=== PATIENT | male | born 1955 | race Two or more races ===

== ENCOUNTER 2018-06-17 09:01 | Inpatient (IN) | payer MEDICAID, OTHER ==
[~2018-06-17] VITALS: Ht 172.7 cm; Wt 81.6 kg
[~2018-06-17 09:01] MED LIST: ALBU4TAB6 HHN; ALBUTEROL; METF-414 PO; P20 PO; P50 PO
[2018-06-17] MEDS ORDERED: MAGNESIUM/ALUMINUM HYDROXIDE/SIMETHICONE 30ML UDC PO STA (09:36)
[2018-06-17] MEDS ORDERED: SODIUM CHLORIDE 0.9% 1,000 ML IV ONE (09:36)
[2018-06-17] MEDS ORDERED: ONDANSETRON HCL 4MG/2ML INJ IV STA (09:36)
[2018-06-17] MEDS ORDERED: KETOROLAC 30MG/ML VIAL IV STA (09:36)
[2018-06-17 09:43] LABS: BASOPHILS % 1.2 % (0.0-2.0); EOSINOPHILS % 11.4 % (0.0-5.0); HEMATOCRIT. 38.8 % (42.0-52.0); HEMOGLOBIN. 12.7 g/dL (14.0-18.0); LYMPHOCYTES % 29.1 % (20.0-50.0); MEAN CORPUSCULAR VOLUME 79.3 fL (80.0-94.0); MEAN PLATELET VOLUME 7.4 fl (7.4-10.4); MONOCYTES % 5.4 % (2.0-8.0); NEUTROPHILS % 52.9 % (40.0-76.0); PLATELET 400 x1000/uL (130-400); RED BLOOD CELL COUNT 4.89 mill/uL (4.7-6.1); RED CELL DISTRIBUTION WIDTH 15.2 % (11.6-14.6)
[2018-06-17 09:50] LABS: CHLORIDE 104 mEq/L (98-107)
[2018-06-17 09:51] LABS: PROTHROMBIN TIME 10.1 sec (9.6-11.0)
[2018-06-17 11:26] LABS: CLARITY URINE CLEAR (CLEAR); COLOR URINE YELLOW (YELLOW); KETONES URINE NEGATIVE (NEGATIVE); LEUKOCYTE ESTERASE URINE NEGATIVE (NEGATIVE); NITRITE URINE NEGATIVE (NEGATIVE); OCCULT BLOOD URINE NEGATIVE (NEGATIVE); PH URINE 5.5 (4.5-8.0); PROTEIN URINE NEGATIVE (NEGATIVE); SPECIFIC GRAVITY URINE 1.015 (1.005-1.030); UROBILINOGEN URINE 0.2 E.U./dL (0.2-1.0)
[2018-06-17] MEDS ORDERED: PANTOPRAZOLE SODIUM 40 MG/VIAL IV ONE (11:30)
[2018-06-17] MEDS ORDERED: ACETAMINOPHEN 325MG TABLET PO PRN (15:30)
[2018-06-17] MEDS ORDERED: MORPHINE SULFATE 2 MG/ML CPJ (NOT FOR IM USE) IV PRN (15:30)
[2018-06-17] MEDS ORDERED: ONDANSETRON HCL 4MG/2ML INJ IV PRN (15:30)
[2018-06-17] MEDS ORDERED: CLONIDINE 0.1MG TABLET PO PRN (15:30)
[2018-06-17] MEDS ORDERED: IPRATROPIUM/ALBUTEROL 0.5-3(2.5)MG/3ML NEB HHN PRN (15:30)
[2018-06-17 16:00] VITALS: BP 166/84
[2018-06-17] MEDS ORDERED: ASA5EC MT (18:51)
[2018-06-17] MEDS ORDERED: INSLIS SUBCUT (18:52)
[2018-06-17] MEDS ORDERED: LISI2.5T47 MT (18:52)
[2018-06-17 19:13] VITALS: BP 166/84
[2018-06-17 20:00] VITALS: BP 155/69
[2018-06-17] MEDS ORDERED: PNEUMOCOCCAL 23-VAL P-SAC VAC 0.5 ML IM ONE (20:00)
[2018-06-17] MEDS: AMLODIPINE 5MG TABLET PO SCH (21:02)
[2018-06-17] MEDS ORDERED: DEXTROSE 50% WATER 50ML SYRINGE IV PRN ×2 (22:30)
[2018-06-18] VITALS (7 sets, daily range): BP systolic 109–139; BP diastolic 54–81
[2018-06-18] MEDS: OMEPRAZOLE 20MG CAPSULE EXTENDED RELEASE PO SCH (06:25)
[2018-06-18] MEDS: BLOOD SUGAR DIAGNOSTIC STRIP TEST SCH ×4 (06:25→20:30)
[2018-06-18 06:37] LABS: EOSINOPHILS % 11.5 % (0.0-5.0); HEMATOCRIT. 34.5 % (42.0-52.0); HEMOGLOBIN. 11.4 g/dL (14.0-18.0); LYMPHOCYTES % 33.8 % (20.0-50.0); MEAN CORPUSCULAR VOLUME 78.7 fL (80.0-94.0); MEAN PLATELET VOLUME 7.7 fl (7.4-10.4); MONOCYTES % 6.4 % (2.0-8.0); NEUTROPHILS % 47.3 % (40.0-76.0); PLATELET 376 x1000/uL (130-400); RED BLOOD CELL COUNT 4.38 mill/uL (4.7-6.1); RED CELL DISTRIBUTION WIDTH 15.1 % (11.6-14.6)
[2018-06-18 07:30] LABS: CHLORIDE 106 mEq/L (98-107)
[2018-06-18 07:42] LABS: TOTAL IRON BINDING CAPACITY 258 ug/dL (250-450)
[2018-06-18] MEDS: INSULIN LISPRO 100 UNITS/ML SUBCUT SCH ×4 (07:50→20:22)
[2018-06-18] MEDS: AMLODIPINE 5MG TABLET PO SCH ×2 (09:24→20:28)
[2018-06-18] MEDS ORDERED: SIMETHICONE 40 MG/0.6 ML 30ML ONE (13:12)
[2018-06-18] MEDS ORDERED: BACTERIOSTATIC SODIUM CHLORIDE 0.9% 30ML VIAL IJ ONE (13:12)
[2018-06-18] MEDS ORDERED: MIDAZOLAM HCL 5 MG/5 ML VIAL ONE (15:40)
[2018-06-18] MEDS ORDERED: MIDAZOLAM HCL 5 MG/5 ML VIAL IV PRN (15:40)
[2018-06-18] MEDS ORDERED: FENTANYL CITRATE/PF 50MCG/ML 2ML VIAL ONE (15:40)
[2018-06-18] MEDS ORDERED: FENTANYL CITRATE/PF 50MCG/ML 2ML VIAL IV PRN (15:41)
[2018-06-18] MEDS: DOCUSATE SODIUM 100MG CAPSULE PO SCH (18:19)
[2018-06-18] MEDS: FERROUS SULFATE 325MG TABLET PO SCH (18:19)
[2018-06-18] MEDS: MORPHINE SULFATE 4 MG/ML CPJ (NOT FOR IM USE) IV PRN (20:00)
[2018-06-19] VITALS: BP 127/77
[2018-06-19] MEDS: MORPHINE SULFATE 4 MG/ML CPJ (NOT FOR IM USE) IV PRN ×2 (03:01→08:24)
[2018-06-19 04:00] VITALS: BP 113/67
[2018-06-19 06:27] LABS: CHLORIDE 103 mEq/L (98-107)
[2018-06-19] MEDS: OMEPRAZOLE 20MG CAPSULE EXTENDED RELEASE PO SCH (06:28)
[2018-06-19 06:29] LABS: BASOPHILS % 0.7 % (0.0-2.0); EOSINOPHILS % 9.2 % (0.0-5.0); HEMATOCRIT. 34.4 % (42.0-52.0); HEMOGLOBIN. 11.3 g/dL (14.0-18.0); LYMPHOCYTES % 29.6 % (20.0-50.0); MEAN CORPUSCULAR HEMOGLOBIN 25.9 pg (28.0-32.0); MEAN CORPUSCULAR VOLUME 78.6 fL (80.0-94.0); MEAN PLATELET VOLUME 7.6 fl (7.4-10.4); MONOCYTES % 6.8 % (2.0-8.0); NEUTROPHILS % 53.7 % (40.0-76.0); PLATELET 370 x1000/uL (130-400); RED BLOOD CELL COUNT 4.38 mill/uL (4.7-6.1); RED CELL DISTRIBUTION WIDTH 15.1 % (11.6-14.6)
[2018-06-19] MEDS: BLOOD SUGAR DIAGNOSTIC STRIP TEST SCH ×3 (06:58→16:52)
[2018-06-19] MEDS: FERROUS SULFATE 325MG TABLET PO SCH ×3 (06:58→17:04)
[2018-06-19 08:00] VITALS: BP 115/71
[2018-06-19] MEDS: DOCUSATE SODIUM 100MG CAPSULE PO SCH ×2 (08:24→17:00)
[2018-06-19] MEDS: INSULIN LISPRO 100 UNITS/ML SUBCUT SCH ×3 (08:25→16:52)
[2018-06-19] MEDS: AMLODIPINE 5MG TABLET PO SCH (08:31)
[2018-06-19 12:00] VITALS: BP 112/65
[2018-06-19 14:49] VITALS: BP 112/65
[2018-06-19 16:00] VITALS: BP 118/76
== END 2018-06-19 17:42 | disposition home or self-care (01) | DRG 241 ==
LOC: ER 09:01 → ENRESERV 13:05 → EDBEDREQ 14:10 → 6EST 14:19 → EDBEDREQ 14:20
PROVIDERS: ADMIT Internal Medicine; ATTEND Internal Medicine
PROC: 0DB68ZX Excision of Stomach, Via Natural or Artificial Opening Endoscopic, Diagnostic (ICD-10-PCS; principal; 2018-06-18)
DX: K26.9 Duodenal ulcer, unspecified as acute or chronic, without hemorrhage or perforation (principal); K22.10 Ulcer of esophagus without bleeding; D50.9 Iron deficiency anemia, unspecified; E11.9 Type 2 diabetes mellitus without complications; I10 Essential (primary) hypertension; K29.70 Gastritis, unspecified, without bleeding; K31.9 Disease of stomach and duodenum, unspecified; J45.909 Unspecified asthma, uncomplicated; Z79.4 Long term (current) use of insulin; Z79.82 Long term (current) use of aspirin; Z79.899 Other long term (current) drug therapy
CPT/HCPCS: 36415; 74176; 80048; 82378; 82728; 82962; 83540; 83550; 88305; 88313; 90732; 93005; 93970; 96374; 96375; 99285; C9113; J1815; J1885; J2250; J2270; J2405; J3010; J3490; J7030

== ENCOUNTER 2018-07-22 19:49 | Emergency (ER) | payer MEDICAID ==
[~2018-07-22] VITALS: Ht 170.2 cm; Wt 73.0 kg
[~2018-07-22 19:49] MED LIST changes: +INSLIS SUBCUT; +LISI2.5T47 MT; -P20 PO; -P50 PO
[2018-07-22] MEDS ORDERED: SODIUM CHLORIDE 0.9% 1,000 ML IV ONE (23:00)
[2018-07-22] MEDS ORDERED: MAGNESIUM/ALUMINUM HYDROXIDE/SIMETHICONE 30ML UDC PO STA (23:00)
[2018-07-22] MEDS ORDERED: MORPHINE SULFATE 2 MG/ML CPJ (NOT FOR IM USE) IV ONE (23:15)
[2018-07-22 23:22] LABS: BASOPHILS % 0.3 % (0.0-2.0); EOSINOPHILS % 11.4 % (0.0-5.0); HEMATOCRIT. 39.4 % (42.0-52.0); HEMOGLOBIN. 13.1 g/dL (14.0-18.0); MEAN CORPUSCULAR HEMOGLOBIN 26.9 pg (28.0-32.0); MEAN CORPUSCULAR VOLUME 80.7 fL (80.0-94.0); MEAN PLATELET VOLUME 7.6 fl (7.4-10.4); MONOCYTES % 6.4 % (2.0-8.0); NEUTROPHILS % 47.9 % (40.0-76.0); PLATELET 311 x1000/uL (130-400); RED BLOOD CELL COUNT 4.88 mill/uL (4.7-6.1); RED CELL DISTRIBUTION WIDTH 16.5 % (11.6-14.6)
[2018-07-22 23:27] LABS: CHLORIDE 108 mEq/L (98-107)
[2018-07-22 23:30] LABS: PROTHROMBIN TIME 10.4 sec (9.6-11.0)
[2018-07-23 00:35] LABS: CLARITY URINE CLEAR (CLEAR); COLOR URINE YELLOW (YELLOW); KETONES URINE NEGATIVE (NEGATIVE); LEUKOCYTE ESTERASE URINE NEGATIVE (NEGATIVE); NITRITE URINE NEGATIVE (NEGATIVE); OCCULT BLOOD URINE NEGATIVE (NEGATIVE); PROTEIN URINE NEGATIVE (NEGATIVE); SPECIFIC GRAVITY URINE 1.012 (1.005-1.030); UROBILINOGEN URINE 0.2 E.U./dL (0.2-1.0)
[2018-07-23] MEDS ORDERED: FAMOTIDINE 20MG TABLET PO SCH (01:30)
[2018-07-23 05:06] VITALS: BP 132/76
== END 2018-07-23 05:09 | disposition home or self-care (01) ==
LOC: ER 19:49
DX: K29.50 Unspecified chronic gastritis without bleeding (principal); E11.9 Type 2 diabetes mellitus without complications; I10 Essential (primary) hypertension; J45.909 Unspecified asthma, uncomplicated; Z79.4 Long term (current) use of insulin
CPT/HCPCS: 36415; 74176; 80053; 81003; 83690; 85025; 85610; 93005; 96374; 99284; J2270; J7030

== ENCOUNTER 2020-10-02 07:43 | Emergency (ER) | payer MEDICAID ==
[~2020-10-02] VITALS: Ht 172.7 cm; Wt 68.0 kg
[2020-10-02 08:55] LABS: BASOPHILS % 0.8 % (0.0-2.0); CHLORIDE 108 mEq/L (98-107); EOSINOPHILS % 4.9 % (0.0-5.0); HEMATOCRIT. 28.4 % (42.0-52.0); HEMOGLOBIN. 8.8 g/dL (14.0-18.0); LYMPHOCYTES % 23.9 % (20.0-50.0); MEAN CORPUSCULAR VOLUME 67.8 fL (80.0-94.0); MEAN PLATELET VOLUME 7.2 fl (7.4-10.4); MONOCYTES % 6.1 % (2.0-8.0); NEUTROPHILS % 64.3 % (40.0-76.0); PLATELET 472 x1000/uL (130-400); RED BLOOD CELL COUNT 4.18 mill/uL (4.7-6.1); RED CELL DISTRIBUTION WIDTH 17.3 % (11.6-14.6)
[2020-10-02 09:32] LABS: CLARITY URINE CLEAR (CLEAR); COLOR URINE YELLOW (YELLOW); KETONES URINE NEGATIVE (NEGATIVE); LEUKOCYTE ESTERASE URINE NEGATIVE (NEGATIVE); NITRITE URINE NEGATIVE (NEGATIVE); OCCULT BLOOD URINE NEGATIVE (NEGATIVE); PROTEIN URINE TRACE (NEGATIVE); SPECIFIC GRAVITY URINE 1.009 (1.005-1.030); UROBILINOGEN URINE 0.2 E.U./dL (0.2-1.0)
[2020-10-02 10:04] LABS: PLATELET ESTIMATE INCREASED
[2020-10-02 10:30] VITALS: BP 176/89
== END 2020-10-02 10:30 | disposition home or self-care (01) ==
LOC: ER 07:43
DX: E10.649 Type 1 diabetes mellitus with hypoglycemia without coma (principal); R42 Dizziness and giddiness; I10 Essential (primary) hypertension; J45.909 Unspecified asthma, uncomplicated; Z79.4 Long term (current) use of insulin
CPT/HCPCS: 36415; 71045; 73030; 80053; 81003; 84484; 85025; 93005; 99285

== ENCOUNTER 2023-04-25 20:10 | Emergency (ER) | payer OTHER ==
[~2023-04-25] VITALS: Ht 175.3 cm; Wt 95.0 kg
[~2023-04-25 20:10] MED LIST changes: +ALBU18HF2 IH; -ALBUTEROL; +FLUT1DIS3 INH; -INSLIS SUBCUT; +LEVO-65 MT; +METR-167 MT; +TOPUD PO
[2023-04-25 20:36] VITALS: O2SAT 100
[2023-04-25 21:33] LABS: BASOPHILS % 0.8 % (0.0-2.0); DIFFERENTIAL COMMENT 0; EOSINOPHILS % 3.8 % (0.0-5.0); HEMATOCRIT. 36.6 % (42.0-52.0); HEMOGLOBIN. 12.1 g/dL (14.0-18.0); LYMPHOCYTES % 43.7 % (20.0-50.0); MEAN CORPUSCULAR HEMOGLOBIN 26.3 pg (28.0-32.0); MEAN CORPUSCULAR VOLUME 79.7 fL (80.0-94.0); MEAN PLATELET VOLUME 7.5 fl (7.4-10.4); MONOCYTES % 7.4 % (2.0-8.0); NEUTROPHILS % 44.3 % (40.0-76.0); PLATELET 239 x1000/uL (130-400); WHITE BLOOD COUNT 4.3 x1000/uL (4.5-11.0)
[2023-04-25] MEDS: SODIUM CHLORIDE 0.9% 1,000 ML IV ONE (21:33)
[2023-04-25] MEDS: KETOROLAC 30MG/ML VIAL IV ONE (21:33)
[2023-04-25 21:34] VITALS: TEMP 98.8
[2023-04-25 21:43] LABS: INR 0.9; PROTHROMBIN TIME 10.6 sec (9.6-11.0)
[2023-04-25 21:48] LABS: ALANINE AMINOTRANSFERASE 29 IU/L (10-49); ALBUMIN 3.8 g/dL (3.2-4.8); ASPARTATE AMINOTRANSFERASE 49 IU/L (<34); BILIRUBIN TOTAL 0.5 mg/dL (0.1-1.0); CALCIUM 8.6 mg/dL (8.7-10.4); CARBON DIOXIDE 25 mEq/L (21-32); CHLORIDE 110 mEq/L (98-107); CREATININE 0.8 mg/dL (0.6-1.3); POTASSIUM 3.9 mEq/L (3.5-5.1); PROTEIN TOTAL 7.1 g/dL (6.0-8.3); SODIUM 141 mEq/L (136-145); TROPONIN I HIGH SENSITIVITY 5 ng/L (3.0-53); UREA NITROGEN BLOOD 21 mg/dL (9-23)
[2023-04-25 21:52] LABS: ETHANOL BLOOD < 10 mg/dL (<10); GLUCOSE 154 mg/dL (70-105)
[2023-04-25] MEDS: LISINOPRIL 10MG TABLET PO ONE (23:38)
[2023-04-26 01:30] VITALS: BP 153/83; PULSE 63; RESP 2
[2023-04-26] MEDS ORDERED: IOHEXOL-300 100 ML BOTTLE ONE (06:34)
== END 2023-04-26 02:46 | disposition short-term general hospital (02) ==
LOC: ER 20:10
DX: R10.13 Epigastric pain (principal); K83.9 Disease of biliary tract, unspecified; J45.909 Unspecified asthma, uncomplicated; E11.9 Type 2 diabetes mellitus without complications; I10 Essential (primary) hypertension; Z87.19 Personal history of other diseases of the digestive system; Z79.899 Other long term (current) drug therapy
CPT/HCPCS: 80053; 80320; 83605; 83690; 85025; 85610; 86850; 86900; 86901; 84484; 36415; 76705; 96361; 96374; 99285; 74177; J1885; J7030; Q9967; G0480